=== PATIENT | female | born 1990 | race Caucasian/White ===

== ENCOUNTER 2020-09-27 06:56 | Emergency (ER) | payer SELFPAY ==
--- OUTSIDE RECORDS SUMMARY | 2020-09-27 06:59 | XMS REPORT | Continuity of Care Document ---
:1990 Author Organization [facility] t Address [address] [place] [address] Care Team Providers Name Role Phone Nesha WOLF, Elana Attending Clinician Unavailable Lab, [facility] Fam Pob I Attending Clinician Unavailable Problems This patient has no known problems. Allergies, Adverse Reactions, Alerts This patient has no known allergies or adverse reactions. Medications This patient has no known medications. Procedures This patient has no known procedures. Encounters Start End Encounter Admission Attending Care Care Encounter Source Date/Time Date/Time Type Type Clinicians Facility Department ID 2019-08-17 2019-08-17 Telephone NeshaELIECER [id number] 00:00:00 00:00:00 Elana KAPLAN [id number] [facility] [id number] 2019-08-17 2019-08-17 Letter ELIECER Jeffries [id number] 00:00:00 00:00:00 (Out) Elana KAPLAN [id number] [facility] [id number] 2019-08-15 2019-08-15 Laboratory Lab, [facility] [id number] 17:16:04 17:36:04 Only Fam Pob I [facility] [id number] [place] [id number] Professio [phone] [address]al [address] One Results This patient has no known results.
--- NOTE | 2020-09-27 08:22 | EDPHYS ---
Physician Documentation [facility] Name: Hao Ellsworth Age: 30 yrs Sex: Female : 1990 Arrival Date: 09/27/2020 Time: 07:01 Bed Waiting Private MD: MARIA ISABEL Physician Brandin Parsons HPI: 09/27 09:41 This 30 yrs old Female presents to ER via Ambulatory with complaints of Runny kb Nose, Cough. 09:41 The patient or guardian reports cough, that is intermittent, described as mild, with no kb sputum, flu symptoms, low-grade fever. Onset: The symptoms/episode began/occurred 3 day(s) ago. Severity of symptoms: At their worst the symptoms were moderate, in the emergency department the symptoms are unchanged. Modifying factors: The symptoms are alleviated by nothing, the symptoms are aggravated by nothing. Associated signs and symptoms: Pertinent positives: fever, rhinorrhea, Pertinent negatives: chest pain, diarrhea, ear ache, nausea, sore throat, vomiting. The patient has not experienced similar symptoms in the past. The patient has not recently seen a physician. Patient reports cough congestion and fever for 3 days. States she came in to get tested for Covid. Historical: - Allergies: 07:14 No Known Allergies; bb - Home Meds: 07:14 None [Active]; bb - PMHx: 07:14 None; bb - PSHx: 07:14 arm surgery; bb - Immunization history:: Adult Immunizations not up to date, Client reports having NOT received the Covid vaccine. - Social history:: Smoking status: Patient denies any tobacco usage or history of. ROS: 09:41 Abdomen/GI: Negative for abdominal pain, nausea, vomiting, diarrhea, and constipation. kb 09:41 Constitutional: Positive for chills, fatigue, fever, malaise. 09:41 ENT: Positive for rhinorrhea, sinus congestion. 09:41 Respiratory: Positive for cough, Negative for dyspnea on exertion, hemoptysis, orthopnea, pleurisy, shortness of breath, sputum production, wheezing. 09:41 All other systems are negative. Exam: 09:41 Constitutional: This is a well developed, well nourished patient who is awake, alert, kb and in no acute distress. Head/Face: Normocephalic, atraumatic. ENT: Moist Mucous membranes Cardiovascular: Regular rate and rhythm with a normal S1 and S2. No gallops, murmurs, or rubs. No pulse deficits. Respiratory: Respirations even and unlabored. No increased work of breathing, no retractions or nasal flaring. Abdomen/GI: Soft, non-tender. No distention Skin: Warm, dry with normal turgor. Normal color. MS/ Extremity: Pulses equal, no cyanosis. Neurovascular intact. Full, normal range of motion. Neuro: Awake and alert, GCS 15, oriented to person, place, time, and situation. Moves all extremities. Normal gait. Psych: Awake, alert, with orientation to person, place and time. Behavior, mood, and affect are within normal limits. Vital Signs: 07:12 BP 117 / 77; Pulse 72; Resp 20; Temp 99.6; Pulse Ox 99% ; Weight 68.04 kg; Height 5 ft. bb 6 in. (167.64 cm); Pain 0/10; 07:12 Body Mass Index 24.21 (68.04 kg, 167.64 cm) bb MDM: 07:09 Patient medically screened. kb 08:17 Data reviewed: vital signs, nurses notes. Data interpreted: Pulse oximetry: on room air kb is 99 %. Interpretation: normal. Counseling: I had a detailed discussion with the patient and/or guardian regarding: the historical points, exam findings, and any diagnostic results supporting the discharge/admit diagnosis, lab results, the need for outpatient follow up, a family practitioner, to return to the emergency department if symptoms worsen or persist or if there are any questions or concerns that arise at home. 09/27 07:10 Order name: Flu; Complete Time: 08:21 kb 09/27 08:18 Order name: SARS-COV-2 RT PCR; Complete Time: 08:21 EDMS Administered Medications: No medications were administered Disposition: 18:06 Co-signature as Attending Physician, Brandin Parsons MD I agree with the assessment and francisco plan of care. Disposition Summary: 09/27/20 08:22 Discharge Ordered Location: Home kb Condition: Stable kb Diagnosis - Coronavirus infection, unspecified kb Followup: kb - With: Emergency Department - When: As needed - Reason: Worsening of condition Followup: kb - With: Private Physician - When: 2 - 3 days - Reason: Recheck today's complaints, Continuance of care, Re-evaluation by your physician Discharge Instructions: - Discharge Summary Sheet kb - Viral Respiratory Infection, [id number] kb - COVID-19 kb Forms: - Medication Reconciliation Form kb - Thank You Letter kb - Antibiotic Education kb - Prescription Opioid Use kb Signatures: Dispatcher [employer] EDMS Emma Kilpatrick, DAISHA GREER-Brandin Ferrell MD MD cha Ballard, Brenda, RN RN bb Corrections: (The following items were deleted from the chart) 07:31 07:10 CORONAVIRUS+MR.LAB.BRZ ordered. EDMS EDMS
--- NOTE | 2020-09-27 08:22 | ER ---
Nurse's Notes [facility] Name: Hao Ellsworth Age: 30 yrs Sex: Female : 1990 Arrival Date: 09/27/2020 Time: 07:01 Bed Waiting Private MD: Diagnosis: Coronavirus infection, unspecified Presentation: 09/27 07:12 Chief complaint: Patient states: cough, fever, decreased appetite, malaise for 3 days. bb Coronavirus screen: Client denies travel out of the [place] in the last 14 days. cough unrelated to allergies, fatigue, fever, runny nose, Client presents with at least one sign or symptom that may indicate coronavirus-19. Standard/surgical mask placed on the client. Provider contacted for isolation considerations. Ebola Screen: Patient negative for fever greater than or equal to 101.5 degrees Fahrenheit, and additional compatible Ebola Virus Disease symptoms Patient denies exposure to infectious person. Patient denies travel to an Ebola-affected area in the 21 days before illness onset. No symptoms or risks identified at this time. Initial Sepsis Screen: Does the patient meet any 2 criteria? No. Patient's initial sepsis screen is negative. Does the patient have a suspected source of infection? No. Patient's initial sepsis screen is negative. Risk Assessment: Do you want to hurt yourself or someone else? Patient reports no desire to harm self or others. Onset of symptoms was September 24, 2020. 07:12 Acuity: ABENA 4 bb 07:12 Method Of Arrival: Ambulatory bb Triage Assessment: 07:14 General: Appears in no apparent distress. comfortable, Behavior is calm, cooperative. bb Pain: Denies pain. Historical: - Allergies: 07:14 No Known Allergies; bb - Home Meds: 07:14 None [Active]; bb - PMHx: 07:14 None; bb - PSHx: 07:14 arm surgery; bb - Immunization history:: Adult Immunizations not up to date, Client reports having NOT received the Covid vaccine. - Social history:: Smoking status: Patient denies any tobacco usage or history of. Screenin:25 Abuse screen: Denies threats or abuse. Denies injuries from another. Nutritional iw screening: No deficits noted. Tuberculosis screening: No symptoms or risk factors identified. Fall Risk None identified. Vital Signs: 07:12 BP 117 / 77; Pulse 72; Resp 20; Temp 99.6; Pulse Ox 99% ; Weight 68.04 kg; Height 5 ft. bb 6 in. (167.64 cm); Pain 0/10; 07:12 Body Mass Index 24.21 (68.04 kg, 167.64 cm) bb ED Course: 07:01 Patient arrived in ED. bp1 07:03 Emma Kilpatrick [facility]NP-C [facility]. kb 07:03 Brandin Parsons MD is Attending Physician. kb 07:14 Triage completed. bb 07:14 Arm band placed on right wrist. bb 07:18 Flu Sent. mt 08:26 No provider procedures requiring assistance completed. Patient did not have IV access iw during this emergency room visit. Administered Medications: No medications were administered Outcome: 08:22 Discharge ordered by . kb 08:25 Discharged to home ambulatory. iw 08:25 Condition: good 08:25 Discharge instructions given to patient, Instructed on discharge instructions, follow up and referral plans. Demonstrated understanding of instructions, follow-up care. 08:26 Patient left the ED. iw Signatures: Emma Kilpatrick FNP-C FNP-Sujatha Beck, RN RN bb Sofy Lugo, MARYANN RN [facility] Melonie Kay [facility] Corrections: (The following items were deleted from the chart) 07:31 07:18 CORONAVIRUS+ drawn and sent. nv EDMS
[2020-09-27 08:31] VITALS: BP 117/77; TEMP 99.6; O2SAT 99
== END 2020-09-27 08:26 | disposition home or self-care (01) ==
LOC: ER 06:56
DX: U07.1 COVID-19 (principal)
CPT/HCPCS: 87804; 99283; U0003